=== PATIENT | male | born 1940 | race Caucasian/White ===

== ENCOUNTER 2017-12-14 08:23 | Emergency (ER) | payer OTHER ==
[~2017-12-14] VITALS: Ht 190.5 cm; Wt 139.3 kg
[~2017-12-14 08:23] MED LIST: CARDURA XL8 MG PO; ETODOLAC 400 M400 M1 PO; FINASTERIDE5 MG PO; KEFLEX500 MG PO
[2017-12-14] MEDS ORDERED: MOBIC15 MG PO (08:29)
[2017-12-14] MEDS ORDERED: KEFLEX500 M1 PO (08:51)
[2017-12-14 09:13] VITALS: BP 146/70
== END 2017-12-14 09:15 | disposition home or self-care (01) ==
LOC: M.ERS 08:23
DX: L03.113 Cellulitis of right upper limb (principal); Z96.643 Presence of artificial hip joint, bilateral; Z98.890 Other specified postprocedural states